=== PATIENT | female | born 1990 | race Caucasian/White ===

== ENCOUNTER 2017-10-23 07:46 | Emergency (ER) | payer OTHER ==
[2017-10-23] MEDS ORDERED: fentaNYL 100 MCG/2 ML INJ IVP ONE (08:04)
[2017-10-23] MEDS ORDERED: ONDANSETRON 4 MG/2 ML VIAL IVP ONE (08:04)
[2017-10-23] MEDS ORDERED: NS 1,000 ML IV ONE (08:04)
--- NOTE | 2017-10-23 08:16 | EDPHY ---
H & P Time Seen by Provider: 10/23/17 08:09 HPI/ROS: HPI Right lower abdominal pain. 27-year-old female by private vehicle with boyfriend. She reports onset of right lower quadrant abdominal pain 1 and 0.5 hr prior to arrival. Describes the pain as very intense and isolated to her right lower quadrant. Describes it as a burning and cramping sensation. No urinary complaints. She has had associated nausea but no vomiting. Last meal was last night at approximately 7: 00 p.m.. No bloody or melenic stool. Last bowel movement was yesterday. Described as normal. No associated diarrhea. No prior abdominal surgical history. She has an IUD in place. She reports that because of this she does not have normal menstruation cycles. Last menstrual was about 2 weeks ago. ROS: Constitutional: No fever, no chills. No weakness. Eyes: No discharge. No changes in vision. ENT: No sore throat. No nasal congestion or rhinorrhea. Respiratory: No cough. No shortness of breath. Cardiac: No chest pain, no palpitations. Gastrointestinal: As above, no vomiting, no diarrhea. Genitourinary: No hematuria. No dysuria or increased frequency with urination. Musculoskeletal: No back pain. No neck pain. No myalgias or arthralgias. Skin: No rashes. Neurological: No headache. No focal weakness or altered sensation. Past medical history: IUD in place. Denies any significant past medical history. Social history: Nonsmoker. Here with boyfriend. No alcohol. Physical Exam: General Appearance: Alert, she appears uncomfortable but not in distress. This patient is responding to questions appropriately and in full sentences. This patient appears well-hydrated and well-nourished. Eyes: Pupils equal and round no pallor or injection. No lid edema, erythema or injection. Respiratory: There are no retractions, lungs are clear to auscultation with good air movement bilaterally. Cardiovascular: Regular rate and rhythm. No murmur. Gastrointestinal: Abdomen is guarded with marked right lower quadrant tenderness on palpation, no masses, bowel sounds normal. Focal tenderness at McBurney's point. No Clark sign. Neurological: Motor sensory function is grossly intact. Cranial nerves are normal. Gait is normal. Skin: Warm and dry, no rashes. Musculoskeletal: Neck is supple and nontender. Extremities are symmetrical. All joints range without pain or impingement. Psychiatric: No agitation. No depression. Database: EKG: Imaging: CT scan of abdomen and pelvis with IV contrast: Small amount of free fluid in the pelvis. This could be secondary to a ruptured ovarian cyst. The appendix is visualized and is normal. No other significant pathology. Results were discussed with staff radiologist Dr. John Paul Tucker. Pelvic ultrasound: Collapsing right ovarian cyst. Good blood flow to both ovaries. No evidence of torsion no other abnormalities. Results were discussed with staff radiologist Dr. Wolfgang Villegas. Pelvic ultrasound: Procedures: Emergency department course: Triage vital signs reviewed and are normal. IV was placed. She was placed on a monitor. She was started on IV normal saline with 1 L to be given over the next hour. She was initially given 50 mcg of IV fentanyl and 4 mg of IV Zofran. CT imaging to be obtained to evaluate for appendicitis. She endorses. 9:45 a.m., the patient seems more relaxed and certainly more comfortable. She reports that she is feeling better. Results of her CT scan, blood work and urinalysis discussed. All are reassuring. After discussion with the radiologist regarding her CT, we will obtain an ultrasound of the pelvis to evaluate her adnexal area in more detail. This was discussed with the patient. She consents. 11:15 a.m., the patient was re-evaluated. Resting comfortably at this time. Results of ultrasound reviewed with her. Complete emergency department workup discussed again. She is feeling much better at this time. Denies significant pain. Repeat abdominal exam she is soft, nontender nondistended. She feels comfortable going home with her boyfriend and I feel she is safe for discharge. Follow-up and return to emergency department precautions have been discussed with her. All of her questions were answered. She was discharged from the emergency department in good condition with her boyfriend. Differential Diagnosis: The differential diagnosis on this patient includes but is not limited to appendicitis, volvulus, ovarian torsion, ectopic . This represents a partial list of diagnoses considered. These considerations are based on history , physical exam, past history, reassessment and diagnostic testing. Smoking Status: Never smoked Constitutional: Initial Vital Signs Temperature (C) 36.7 C 10/23/17 07:55 Heart Rate 58 L 10/23/17 07:55 Respiratory Rate 16 10/23/17 07:55 Blood Pressure 115/85 H 10/23/17 07:55 O2 Sat (%) 97 10/23/17 07:55 O2 Delivery Mode Room Air Allergies/Adverse Reactions: No Known Allergies Allergy (Verified 10/23/17 07:54) Home Medications: Medication Instructions Recorded NK [No Known Home Meds] 10/23/17 Medical Decision Making - Diagnostics Imaging Results: Imaging Impressions Abdomen CT 10/23/17 08:12 Impression: 1. Moderate free fluid in the pelvis with a small amount of free fluid in the abdomen, which could be related to cyst rupture but is nonspecific. 2. Enlarged mildly heterogeneous right ovary, which could be related to recent cyst rupture. 3. Additional findings as above. Findings discussed with Alex Barr MD 10/23/2017 at 9:33 a.m. The patient will undergo pelvic ultrasound. - Data Points Laboratory Results: Laboratory Results 10/23/17 08:06 10/23/17 08:06 10/23/17 10/23/17 10/23/17 09:00 08:06 08:06 WBC RBC Hgb Hct MCV MCH MCHC RDW Plt Count MPV Neut % (Auto) Lymph % (Auto) [place] % (Auto) Eos % (Auto) Baso % (Auto) Nucleat RBC Rel Count Absolute Neuts (auto) Absolute Lymphs (auto) Absolute Monos (auto) Absolute Eos (auto) Absolute Basos (auto) Absolute Nucleated RBC Immature Gran % Immature Gran # Sodium 138 mEq/L mEq/L (135-145) Potassium 4.0 mEq/L mEq/L (3.3-5.0) Chloride 104 mEq/L mEq/L (97-110) Carbon Dioxide 23 mEq/l mEq/l (22-31) Anion Gap 11 mEq/L mEq/L (8-16) BUN 12 mg/dL mg/dL (7-23) Creatinine 0.7 mg/dL mg/dL (0.6-1.0) Estimated GFR > 60 Glucose 92 mg/dL mg/dL (70-100) Calcium 9.4 mg/dL mg/dL (8.5-10.4) Beta HCG, Qual NEGATIVE Urine Color YELLOW Urine Appearance CLEAR Urine pH 5.0 (5.0-7.5) Ur Specific [place] 1.020 (1.002-1.030) Urine Protein NEGATIVE (NEGATIVE) Urine Ketones 1+ H (NEGATIVE) Urine Blood NEGATIVE (NEGATIVE) Urine Nitrate NEGATIVE (NEGATIVE) Urine Bilirubin NEGATIVE (NEGATIVE) Urine Urobilinogen NEGATIVE EU EU (0.2-1.0) Ur Leukocyte Esterase NEGATIVE (NEGATIVE) Urine RBC 1-3 /hpf /hpf (0-3) Urine WBC 1-3 /hpf /hpf (0-3) Ur Epithelial Cells 1+ /lpf /lpf (NONE-1+) Urine Mucus TRACE /lpf /lpf (NONE-1+) Urine Glucose NEGATIVE (NEGATIVE) 10/23/17 08:06 WBC 6.99 10^3/uL 10^3/uL (3.80-9.50) RBC 4.98 10^6/uL 10^6/uL (4.18-5.33) Hgb 13.5 g/dL g/dL (12.6-16.3) Hct 41.1 % % (38.0-47.0) MCV 82.5 fL fL (81.5-99.8) MCH 27.1 pg L pg (27.9-34.1) MCHC 32.8 g/dL g/dL (32.4-36.7) RDW 14.4 % % (11.5-15.2) Plt Count 229 10^3/uL 10^3/uL (150-400) MPV 11.2 fL fL (8.7-11.7) Neut % (Auto) 47.7 % % (39.3-74.2) Lymph % (Auto) 38.9 % % (15.0-45.0) [place] % (Auto) 10.7 % % (4.5-13.0) Eos % (Auto) 1.1 % % (0.6-7.6) Baso % (Auto) 1.0 % % (0.3-1.7) Nucleat RBC Rel Count 0.0 % % (0.0-0.2) Absolute Neuts (auto) 3.33 10^3/uL 10^3/uL (1.70-6.50) Absolute Lymphs (auto) 2.72 10^3/uL 10^3/uL (1.00-3.00) Absolute Monos (auto) 0.75 10^3/uL 10^3/uL (0.30-0.80) Absolute Eos (auto) 0.08 10^3/uL 10^3/uL (0.03-0.40) Absolute Basos (auto) 0.07 10^3/uL 10^3/uL (0.02-0.10) Absolute Nucleated RBC 0.00 10^3/uL 10^3/uL (0-0.01) Immature Gran % 0.6 % % (0.0-1.1) Immature Gran # 0.04 10^3/uL 10^3/uL (0.00-0.10) Sodium Potassium Chloride Carbon Dioxide Anion Gap BUN Creatinine Estimated GFR Glucose Calcium Beta HCG, Qual Urine Color Urine Appearance Urine pH Ur Specific [place] Urine Protein Urine Ketones Urine Blood Urine Nitrate Urine Bilirubin Urine Urobilinogen Ur Leukocyte Esterase Urine RBC Urine WBC Ur Epithelial Cells Urine Mucus Urine Glucose Medications Given: Discontinued Medications Fentanyl (Sublimaze) 50 mcg IVP EDNOW ONE Stop: 10/23/17 08:05 Last Admin: 10/23/17 08:11 Dose: 50 mcg Sodium Chloride (Ns) 1,000 mls @ 0 mls/hr IV ONCE ONE; Wide Open PRN Reason: Protocol Stop: 10/23/17 08:05 Last Admin: 10/23/17 08:10 Dose: 1,000 mls Ondansetron HCl (Zofran) 4 mg IVP EDNOW ONE Stop: 10/23/17 08:05 Last Admin: 10/23/17 08:10 Dose: 4 mg Departure - Departure Disposition: Home, Routine, Self-Care Clinical Impression: Right lower quadrant abdominal pain, Ovarian cyst, right Condition: Good Instructions: Acute Abdominal Pain (ED), Ruptured Ovarian Cyst (ED) Additional Instructions: Read and follow provided instructions. Follow-up with your primary care physician in 1-2 days for re-evaluation as needed. Ibuprofen dosin mg every 6 hours with meals for the next 3 days only. Take only as needed for pain. Return to the emergency department for worsening pain, fever, vomiting or other serious concerns. Referrals: Leonila Webb MD [Primary Care Provider] - As per Instructions
[2017-10-23 08:29] LABS: PLATELET COUNT 229 10^3/uL (150-400)
[2017-10-23] MEDS ORDERED: IOPAMIDOL (ISOVUE-300) 100 ML BTL ONE (08:37)
[2017-10-23 11:26] VITALS: BP 117/72
== END 2017-10-23 11:33 | disposition home or self-care (01) ==
DX: N83.291 Other ovarian cyst, right side (principal); E86.9 Volume depletion, unspecified
CPT/HCPCS: 96374; J2405; J3010; Q9967